=== PATIENT | male | born 1995 | race Caucasian/White ===

== ENCOUNTER 2023-06-13 07:44 | Emergency (ER) | payer OTHER, SELFPAY ==
[2023-06-13 07:46] VITALS: BP 143/83; PULSE 72; TEMP 36.6; O2SAT 98
--- NOTE | 2023-06-13 09:07 | ED.GENADULT ---
HPI - General Adult General Chief complaint: Back Pain/Injury Stated complaint: back pain Time Seen by Provider: 06/13/23 08:57 Source: patient Mode of arrival: ambulatory Limitations: no limitations History of Present Illness HPI narrative: This is a 27-year-old male who presents to the ED with chief complaint of back pain following injury this morning. Reports that he was putting his child back in the crib when he heard his back pop. He now complains of mild pain in the left lower back that has largely resolved after taking Tylenol shortly after the injury.. Denies fevers, chills, numbness, weakness, or bladder dysfunction. Denies any further sites of pain or injury. Related Data Allergies Allergy/AdvReac Type Severity Reaction Status Date / Time No Known Allergies Allergy Verified 06/13/23 07:50 Review of Systems Review of Systems: All systems as dictated in HPI Exam Narrative: GENERAL: Well-appearing, well-nourished, and in no acute distress. HEAD: Normocephalic, atraumatic. EYES: PERRLA and EOMI. ENT: Nares clear, no rhinorrhea or epistaxis. Mucous membranes moist. Oropharynx without tonsillar hypertrophy exudate or other lesions. NECK: Supple. No adenopathy or masses. CHEST: No respiratory distress. Clear to auscultation. No wheezes rales or rhonchi HEART: Regular rate and rhythm. No murmur heard. Normal peripheral pulses. ABDOMEN: Soft, nontender, nondistended, normal active bowel sounds. MSK: Mild paraspinal tenderness in the left lumbar paraspinal muscles. No midline spinal tenderness. normal range of motion. No edema. Ambulatory without difficulty. SKIN: Warm, dry, no rash. NEURO: Alert and oriented x3. No focal deficits. 5/5 strength and sensation in the upper and lower extremities. PSYCH: Normal mood and affect. Course Vital Signs Vital signs: Vital Signs Temperature 98 F 06/13/23 07:46 Pulse Rate 72 06/13/23 07:46 Blood Pressure 143/83 H 06/13/23 07:46 Pulse Oximetry 98 06/13/23 07:46 Oxygen Delivery Room Air 06/13/23 07:46 Temperature 98 F 06/13/23 07:46 Pulse Rate 72 06/13/23 07:46 Blood Pressure 143/83 H 06/13/23 07:46 Pulse Oximetry 98 06/13/23 07:46 Oxygen Delivery Room Air 06/13/23 07:46 Medical Decision Making MDM Narrative Medical decision making narrative: This is a 27-year-old male who presents to the ED with chief complaint of a back injury that occurred this morning while lower his child into the crib. Vitals are normal. No saddle anesthesia. No loss of bowel or bladder dysfunction. No indications for emergent imaging at this point. Symptoms consistent with musculoskeletal pain, likely a muscle strain. Muscle relaxer sent. Pt will be discharged in stable condition. Return precautions given and supportive measures discussed. Pt is understanding and agreeable with plan for discharge and follow-up with PCP. Vital Signs Vital Signs: Vital Signs Temperature 98 F 06/13/23 07:46 Pulse Rate 72 06/13/23 07:46 Blood Pressure 143/83 H 06/13/23 07:46 Pulse Oximetry 98 06/13/23 07:46 Oxygen Delivery Room Air 06/13/23 07:46 Temperature 98 F 06/13/23 07:46 Pulse Rate 72 06/13/23 07:46 Blood Pressure 143/83 H 06/13/23 07:46 Pulse Oximetry 98 06/13/23 07:46 Oxygen Delivery Room Air 06/13/23 07:46 Discharge Plan Discharge Clinical Impression: Strain of lumbar region Patient Disposition: Home, Self-Care Condition: Stable Instructions: Antibiotic Form, Back Pain (ED) Additional Instructions: Your exam today is reassuring. Please follow-up with your primary care doctor regarding your back pain. Use muscle relaxers at nighttime as needed. If you have any pain that arises take Tylenol or ibuprofen every 6 hours. You may need to do physical therapy for further management. If you have any new or worsening symptoms please return to the ER for further evaluation. Prescriptions: New
== END 2023-06-13 09:35 | disposition home or self-care (01) ==
PROVIDERS: Emergency Provider Physician Assistant
DX: S39.012A Strain of muscle, fascia and tendon of lower back, initial encounter (principal); X50.9XXA Other and unspecified overexertion or strenuous movements or postures, initial encounter
CPT/HCPCS: 99283